=== PATIENT | male | born 2000 | race Caucasian/White ===

== ENCOUNTER 2019-10-23 12:21 | Emergency (ER) | payer OTHER ==
[~2019-10-23] VITALS: Ht 185.4 cm; Wt 127.0 kg
[2019-10-23] MEDS ORDERED: BUPROPION XL300 MG PO (12:40)
[2019-10-23] MEDS ORDERED: ALBUTEROL2.5 MG/0.1 INH (12:41)
[2019-10-23] MEDS ORDERED: ZANAFLEX4 MG PO (14:22)
[2019-10-23] MEDS ORDERED: NAPROSYN500 MG PO (14:22)
[2019-10-23 14:50] VITALS: BP 125/62
== END 2019-10-23 14:50 | disposition home or self-care (01) ==
LOC: M.ERS 12:21
DX: S16.1XXA Strain of muscle, fascia and tendon at neck level, initial encounter (principal); S20.211A Contusion of right front wall of thorax, initial encounter; M25.512 Pain in left shoulder; M25.531 Pain in right wrist; J45.909 Unspecified asthma, uncomplicated; V86.56XA Driver of dirt bike or motor/cross bike injured in nontraffic accident, initial encounter; Y93.89 Activity, other specified; Y92.89 Other specified places as the place of occurrence of the external cause; Y99.8 Other external cause status

== ENCOUNTER 2020-09-04 14:42 | Emergency (ER) | payer OTHER ==
[~2020-09-04] VITALS: Ht 185.4 cm; Wt 127.0 kg
[~2020-09-04 14:42] MED LIST: ALBUTEROL2.5 MG/0.1 INH; BUPROPION XL300 MG PO; NAPROSYN500 MG PO; ZANAFLEX4 MG PO
[2020-09-04 15:30] LABS: ABSOLUTE EOSINOPHILS 0.3 thou/uL (0.0-0.7); ABSOLUTE LYMPHOCYTES 1.7 thou/uL (0.8-5.3); ABSOLUTE MONOCYTES 0.6 thou/uL (0.0-1.2); ABSOLUTE NEUTROPHILS 2.8 thou/uL (1.6-8.1); BASOPHILS 0.5 %; EOSINOPHILS 5.3 %; HEMATOCRIT 42.7 % (42.0-52.0); HEMOGLOBIN 14.4 gm/dL (14.0-18.0); LYMPHOCYTES 32.1 %; MCH 29.2 pg (26.0-34.0); MCHC 33.7 g/dL (28.0-37.0); MCV 86.8 fL (80.0-100.0); MONOCYTES 10.8 %; NUCLEATED RBCS 0 /100WBC; PLATELET COUNT* 242 thou/uL (150-400); POLYS 51.3 %; RBC 4.92 mil/uL (4.50-6.00); RDW-CV 13.2 % (10.5-14.5); WBC 5.4 thou/uL (4.0-11.0)
[2020-09-04 15:34] LABS: CALCIUM 8.5 mg/dL (8.5-10.1); POTASSIUM 4.2 mmol/L (3.5-5.1)
[2020-09-04 15:39] LABS: ALBUMIN 3.6 g/dL (3.4-5.0); TOTAL BILIRUBIN 0.2 mg/dL (<0.1-1.0); TOTAL PROTEIN 7.2 g/dL (6.4-8.2)
[2020-09-04] MEDS ORDERED: MEDROLDOSEPACK PO (15:46)
[2020-09-04] MEDS ORDERED: ZPAK PO (15:46)
[2020-09-04] MEDS ORDERED: VENTOLIN HFA 1818 GM INH (15:46)
[2020-09-04 16:08] VITALS: BP 145/77
--- NOTE | 2020-09-05 13:10 | EKG ---
[place] [address] ELECTROCARDIOGRAM REPORT Name: JOHN ELDER Jesus Room: 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: [facility] : 2000 Requested By: Latoya Lewis Order Number: [id number] MD: Sergio Shah Measurements Intervals [place] Rate: 86 P: 30 IA: 173 QRS: -19 QRSD: 106 T: 34 QT: 357 QTc: 427 Interpretive Statements Sinus rhythm Probable left ventricular hypertrophy No previous ECG available for comparison Electronically Signed On 09-05-2020 13:10:39 MARKET RESEARCH CONSULTANT by Sergio Shah [email or web address] <ELECTRONICALLY SIGNED> By: Sergio Shah MD, [facility] 09/05/20 1310 10 10 Sergio Shah MD, FACC /EPI
== END 2020-09-04 16:10 | disposition home or self-care (01) ==
LOC: M.ERS 14:42
PROVIDERS: Nurse Practitioner Family
DX: J45.909 Unspecified asthma, uncomplicated (principal); J20.9 Acute bronchitis, unspecified; Z20.828 Contact with and (suspected) exposure to other viral communicable diseases; Z79.899 Other long term (current) drug therapy

== ENCOUNTER 2020-11-23 11:42 | Emergency (ER) | payer OTHER ==
[~2020-11-23] VITALS: Ht 185.4 cm; Wt 127.0 kg
[~2020-11-23 11:42] MED LIST changes: +MEDROLDOSEPACK PO; +VENTOLIN HFA 1818 GM INH; +ZPAK PO
[2020-11-23] MEDS ORDERED: IBUPROFEN 800800 M1 PO (12:38)
[2020-11-23] MEDS ORDERED: ZANAFLEX4 MG PO (12:38)
[2020-11-23 12:48] VITALS: BP 134/71
== END 2020-11-23 12:49 | disposition home or self-care (01) ==
LOC: M.ERS 11:42
DX: S16.1XXA Strain of muscle, fascia and tendon at neck level, initial encounter (principal); S09.90XA Unspecified injury of head, initial encounter; F41.9 Anxiety disorder, unspecified; R42 Dizziness and giddiness; R11.0 Nausea; J45.909 Unspecified asthma, uncomplicated; Z79.899 Other long term (current) drug therapy; W22.8XXA Striking against or struck by other objects, initial encounter; Y93.A1 Activity, exercise machines primarily for cardiorespiratory conditioning; Y92.89 Other specified places as the place of occurrence of the external cause; Y99.8 Other external cause status

== ENCOUNTER 2021-08-05 02:02 | Inpatient (IN) | payer OTHER ==
[~2021-08-05] VITALS: Ht 185.4 cm; Wt 127.0 kg
[~2021-08-05 02:02] MED LIST changes: +IBUPROFEN 800800 M1 PO
[2021-08-05 02:14] VITALS: BP 145/79
[2021-08-05] MEDS ORDERED: LOMAIRA8 MG PO (02:15)
[2021-08-05 02:48] LABS: INFLUENZA A ANTIGEN Negative (Negative); INFLUENZA B ANTIGEN Negative (Negative)
[2021-08-05 03:05] LABS: URINE BILIRUBIN NEGATIVE (Negative); URINE BLOOD TRACE (Negative); URINE CLARITY CLEAR; URINE COLOR YELLOW; URINE GLUCOSE-RANDOM NEGATIVE (Negative); URINE KETONES NEGATIVE (Negative); URINE LEUKOCYTES-REFLEX NEGATIVE (Negative); URINE NITRITE-REFLEX NEGATIVE (Negative); URINE PROTEIN NEGATIVE (Negative); URINE SPECIFIC GRAVITY 1.025 (1.005-1.030); URINE UROBILINOGEN 0.2 E.U./dl (0.2-1.0)
[2021-08-05 04:09] LABS: ABSOLUTE LYMPHOCYTES 1.4 thou/uL (0.8-5.3); ABSOLUTE NEUTROPHILS 10.7 thou/uL (1.6-8.1); BASOPHILS 0.2 %; EOSINOPHILS 0.2 %; HEMATOCRIT 39.3 % (42.0-52.0); HEMOGLOBIN 13.2 gm/dL (14.0-18.0); LYMPHOCYTES 10.7 %; MCH 29.3 pg (26.0-34.0); MCHC 33.7 g/dL (28.0-37.0); MCV 86.9 fL (80.0-100.0); MONOCYTES 7.6 %; MPV 6.8 fl. (7.2-11.1); NUCLEATED RBCS 0 /100WBC; PLATELET COUNT* 266 thou/uL (150-400); POLYS 81.3 %; RBC 4.53 mil/uL (4.50-6.00); RDW-CV 13.2 % (10.5-14.5); WBC 13.2 thou/uL (4.0-11.0)
[2021-08-05 04:25] LABS: CALCIUM 7.8 mg/dL (8.5-10.1); CREATININE 1.1 mg/dL (0.6-1.3); POTASSIUM 3.6 mmol/L (3.5-5.1)
[2021-08-05 04:30] LABS: ALBUMIN 3.2 g/dL (3.4-5.0); TOTAL BILIRUBIN 0.3 mg/dL (<0.1-1.0); TOTAL PROTEIN 6.9 g/dL (6.4-8.2)
[2021-08-05 05:38] LABS: CSF PROTEIN 47.8 mg/dl (15-45)
[2021-08-05 07:30] LABS: CSF CLARITY CLEAR; CSF COLOR COLORLESS; CSF RBC 0 /mm3; CSF WBC 130 /mm3 (0-10); VOLUME 11 ml
[2021-08-05 07:32] LABS: CSF CLARITY CLEAR; CSF COLOR COLORLESS; VOLUME 11 ml
[2021-08-05 07:33] LABS: CSF RBC 16 /mm3; CSF WBC 16 /mm3 (0-10)
[2021-08-05 07:36] LABS: CSF LYMPHOCYTES 2 % (40-80); CSF POLYS 98 % (0-6)
[2021-08-05 08:14] LABS: CSF LYMPHOCYTES 4 % (40-80); CSF MONONUCLEARS 3 % (15-45); CSF POLYS 93 % (0-6)
--- NOTE | 2021-08-05 10:41 | EKG ---
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
[2021-08-05 15:55] VITALS: BP 140/77
[2021-08-05 17:28] VITALS: BP 145/79
[2021-08-05 20:00] VITALS: BP 121/65
--- NOTE | 2021-08-06 05:02 | NUR ---
ASSUMED CARE AT 1920. ALERT AND ORIENTED. PLEASANT. PAIN MEDS GIVEN NEEDED FOR HEADACHE. SAYS THAT HEADACHE IS NOT BAD BEFORE. UP AD RYNE. IVF NS AT 80 CC/HR TO LEFT AC. SLEPT MOST OF THE NIGHT. CALL LIGHT IN REACH.
[2021-08-06 08:15] VITALS: BP 141/65
--- NOTE | 2021-08-06 10:06 | NUR ---
CM ASSESSMENT: PT A&O, INDEPENDENT WITH ADL'S, ACITVE AND WORKS. NO CM D/C PLANNING NEEDS ANTICIPATED AT THIS TIME. CM WILL REMAIN AVAILABLE TO ASSIST AND FOLLOW NEEDED.
[2021-08-06 12:59] VITALS: BP 147/59
[2021-08-06 16:42] VITALS: BP 118/55
[2021-08-06 19:41] LABS: ABSOLUTE EOSINOPHILS 0.1 thou/uL (0.0-0.7); ABSOLUTE LYMPHOCYTES 2.6 thou/uL (0.8-5.3); ABSOLUTE MONOCYTES 0.8 thou/uL (0.0-1.2); ABSOLUTE NEUTROPHILS 5.6 thou/uL (1.6-8.1); BASOPHILS 0.5 %; EOSINOPHILS 0.7 %; HEMATOCRIT 39.1 % (42.0-52.0); HEMOGLOBIN 13.4 gm/dL (14.0-18.0); LYMPHOCYTES 28.6 %; MCH 29.4 pg (26.0-34.0); MCHC 34.1 g/dL (28.0-37.0); MCV 86.2 fL (80.0-100.0); MONOCYTES 8.6 %; MPV 6.8 fl. (7.2-11.1); NUCLEATED RBCS 0 /100WBC; PLATELET COUNT* 255 thou/uL (150-400); POLYS 61.6 %; RBC 4.54 mil/uL (4.50-6.00); RDW-CV 12.9 % (10.5-14.5); WBC 9.1 thou/uL (4.0-11.0)
[2021-08-06 20:00] VITALS: BP 120/43
[2021-08-06 23:17] VITALS: BP 115/62
[2021-08-07 00:38] VITALS: BP 114/44
--- NOTE | 2021-08-07 05:03 | NUR ---
ASSUMED CARE AT 1920. ALERT AND ORIENTED. PLEASANT. C/O HEADACHE. FIORICET GIVEN WITH GOOD RELIEF. UP AD RYNE. IVF NS AT 80 CC/HR TO LEFT AC. SLEPT LITTLE OFF AND ON. CALL LIGHT IN REACH.
[2021-08-07 09:00] VITALS: BP 112/62
--- NOTE | 2021-08-07 10:04 | NUR ---
PLAN OF CARE: PLAN REMAINS FOR PT TO D/C HOME WITH SELF-CARE WHEN MEDICALLY STABLE. NO CM D/C PLANNING NEEDS ANTICIPATED. CM WILL REMAIN AVAILABLE TO ASSIST AND FOLLOW NEEDED.
[2021-08-07 12:27] VITALS: BP 120/59
[2021-08-07 17:09] VITALS: BP 136/67
[2021-08-07 20:00] VITALS: BP 132/72
[2021-08-08 02:19] VITALS: BP 124/67
[2021-08-08 04:00] VITALS: BP 108/63
--- NOTE | 2021-08-08 04:35 | NUR ---
PATIENT SLEPT WELL DURING THIS SHIFT. PT UP AD RYNE WALKING AROUND THE ROOM. PT ON FLUIDS/ANTIBIOTICS PER DR ORDER. PT IS ON ROOM AIR. PT REQUESTED FIORICET FOR PAIN. PT ABLE TO SLEEP AFTERWARDS. FREQUENTLY USED ITEMS AND CALL LIGHT WITHIN REACH. SIDERAILS UPX2. WILL CONTINUE TO MONITOR.
[2021-08-08 07:48] LABS: ABSOLUTE BASOPHILS 0.1 thou/uL (0.0-0.2); ABSOLUTE EOSINOPHILS 0.3 thou/uL (0.0-0.7); ABSOLUTE LYMPHOCYTES 1.8 thou/uL (0.8-5.3); ABSOLUTE MONOCYTES 0.6 thou/uL (0.0-1.2); BASOPHILS 0.7 %; EOSINOPHILS 3.2 %; HEMATOCRIT 38.6 % (42.0-52.0); HEMOGLOBIN 13.2 gm/dL (14.0-18.0); LYMPHOCYTES 23.4 %; MCH 29.4 pg (26.0-34.0); MCHC 34.3 g/dL (28.0-37.0); MCV 85.8 fL (80.0-100.0); MONOCYTES 8.1 %; MPV 7.4 fl. (7.2-11.1); NUCLEATED RBCS 0 /100WBC; PLATELET COUNT* 299 thou/uL (150-400); POLYS 64.6 %; RDW-CV 13.1 % (10.5-14.5); WBC 7.8 thou/uL (4.0-11.0)
[2021-08-08 07:59] LABS: ALBUMIN 3.2 g/dL (3.4-5.0); CALCIUM 8.5 mg/dL (8.5-10.1); POTASSIUM 4.6 mmol/L (3.5-5.1); TOTAL BILIRUBIN 0.4 mg/dL (<0.1-1.0); TOTAL PROTEIN 6.4 g/dL (6.4-8.2)
[2021-08-08 08:00] VITALS: BP 150/84
[2021-08-08 11:05] VITALS: BP 120/58
--- NOTE | 2021-08-08 15:19 | NUR ---
PLAN OF CARE: PLAN REMAINS FOR THE PT TO D/C HOME WITH SELF-CARE WHEN MEDICALLY STABLE. NO CM D/C PLANNING NEEDS ANTICIPATED AT THIS TIME. CM WILL REMAIN AVAILABLE TO ASSIST AND FOLLOW NEEDED.
[2021-08-08 17:04] VITALS: BP 145/69
--- NOTE | 2021-08-08 17:10 | NUR ---
PATIENT UP AD RYNE AROUND ROOM. PATIENT C/O THAT IV PAINFUL THIS AFTERNOON PRIOR TO VANCOMYCIN. MIDLINE PLACED BY IV NURSE FOR TID VANC AND BID ROCEPHIN. PRN FIORCET GIVEN X [address] GRAFF NOTIFIED THAT LAB PENDING SHOULD BE BACK THIS EVENING OR TOMORROW. RVP PENDING.
[2021-08-08 20:00] VITALS: BP 138/72
--- NOTE | 2021-08-09 05:09 | NUR ---
PATIENT SLEPT WELL. PT UP AD RYNE IN ROOM. VOIDS YELLOW URINE. DENIES PAIN/NAUSEA DURING THIS SHIFT. REFUSED FIORICET BECAUSE IT KEPT HIM AWAKE ALL NIGHT AND TOOK ZANAFLEX INSTEAD. PT WITH MIDLINE IN LT UPPER ARM. DENIES NEEDS AT THIS TIME. FREQUENTLY USED ITEMS AND CALL LIGHT WITHIN REACH. SIDERAILS UPX2. WILL CONTINUE TO MONITOR.
[2021-08-09 05:39] VITALS: BP 100/60
[2021-08-09 06:01] LABS: ABSOLUTE EOSINOPHILS 0.3 thou/uL (0.0-0.7); ABSOLUTE LYMPHOCYTES 1.9 thou/uL (0.8-5.3); ABSOLUTE MONOCYTES 0.5 thou/uL (0.0-1.2); ABSOLUTE NEUTROPHILS 4.6 thou/uL (1.6-8.1); BASOPHILS 0.4 %; EOSINOPHILS 4.5 %; HEMOGLOBIN 13.9 gm/dL (14.0-18.0); LYMPHOCYTES 25.7 %; MCH 29.8 pg (26.0-34.0); MCV 87.6 fL (80.0-100.0); MONOCYTES 7.2 %; MPV 7.1 fl. (7.2-11.1); NUCLEATED RBCS 0 /100WBC; PLATELET COUNT* 280 thou/uL (150-400); POLYS 62.2 %; RBC 4.69 mil/uL (4.50-6.00); WBC 7.3 thou/uL (4.0-11.0)
[2021-08-09 06:19] LABS: ALBUMIN 3.1 g/dL (3.4-5.0); CALCIUM 8.4 mg/dL (8.5-10.1); POTASSIUM 3.9 mmol/L (3.5-5.1); TOTAL BILIRUBIN 0.3 mg/dL (<0.1-1.0); TOTAL PROTEIN 6.9 g/dL (6.4-8.2)
[2021-08-09 08:17] VITALS: BP 100/44
[2021-08-09 13:40] VITALS: BP 100/44
[2021-08-09] MEDS ORDERED: BUTALB-APAP-CA1 EACH PO (13:53)
[2021-08-10 07:36] LABS: HIV-1/HIV-2 ANTIBODY Non Reactive (Non Reactive)
== END 2021-08-09 14:30 | disposition home or self-care (01) | DRG 96 ==
LOC: M.ERS 02:02 → M.TBA-ER 06:52 → M.2W 06:52 → M.3W 16:07 → M.2W 20:12
PROVIDERS: Emergency Medicine; Internal Medicine; Nurse Practitioner Family; ADMIT Internal Medicine; ATTEND Internal Medicine
PROC: 009U3ZX Drainage of Spinal Canal, Percutaneous Approach, Diagnostic (ICD-10-PCS; principal; 2021-08-07)
DX: G00.9 Bacterial meningitis, unspecified (principal); A87.9 Viral meningitis, unspecified; Z20.822 Contact with and (suspected) exposure to COVID-19; F41.9 Anxiety disorder, unspecified; J45.909 Unspecified asthma, uncomplicated